=== PATIENT | female | born 1950 | race Caucasian/White ===

== ENCOUNTER 2019-02-15 10:42 | Emergency (ER) | payer MEDICARE ==
[2019-02-15] MEDS ORDERED: METOCLOPRAMIDE HCL INJ 10 MG/2 ML VIAL IM ONE (11:06)
[2019-02-15] MEDS ORDERED: ACETAMINOPHEN 500 MG TAB PO ONE (11:06)
[2019-02-15] MEDS ORDERED: IBUPROFEN 200 MG TAB PO ONE (11:06)
[2019-02-15] MEDS ORDERED: cloNIDine HCL 0.1 MG TAB PO ONE (11:06)
--- NOTE | 2019-02-15 11:15 | ED.PDOC ---
History of Present Illness - General Chief Complaint: Cardiovascular Problem Stated Complaint: Elevated BP, headache Time Seen by Provider: 02/15/19 11:05 - History of Present Illness Initial Comments: Pt is a 69 year old with pmh of htn who presents to the ED c/o a headache and elevated BP. Says she woke up this AM with a headache and found her BP to be over 200. She took her amlodipine but continued to be symptomatic and so took another dose. She decided to come to the ED since her BP has continued to be elevated. Her headache is left sided and radiates to her jaw. She does note a h/o headaches, and had a similar headache a couple weeks ago. Denies cp, sob, blurry vision, weakness. Allergies/Adverse Reactions: Allergies NO KNOWN ALLERGY Allergy (Verified 02/15/19 10:57) Home Medications: Ambulatory Orders Clonidine HCl [Clonidine Hydrochloride] 0.1 mg PO Q6HR PRN #20 tab 02/15/19 Fluticasone Prop 0.05% Nasal [Flonase Nasal [place]] 1 spray BNAS DAILY PRN Hydrochlorothiazide 25 mg PO BID 02/15/19 Montelukast [Singulair] 10 mg PO DAILY 02/15/19 amLODIPine BESYLATE [Norvasc] 5 mg PO DAILY 02/15/19 Review of Systems - Review of Systems Constitutional: States: no symptoms reported EENTM: States: no symptoms reported Respiratory: States: no symptoms reported Cardiology: States: no symptoms reported Gastrointestinal/Abdominal: States: no symptoms reported Genitourinary: States: no symptoms reported Musculoskeletal: States: no symptoms reported Skin: States: no symptoms reported Neurological: States: headache. Denies: numbness Endocrine: States: no symptoms reported Hematologic/Lymphatic: States: no symptoms reported All other Systems: Reviewed and Negative Past Medical History (General) - Patient Medical History Hx Stroke: No Hx Congestive Heart Failure: No Hx Hypertension: Yes Hx Diabetes: No Hx MRSA: No - Vaccination History Hx Influenza Vaccination: No Hx Pneumococcal Vaccination: No - Social History Hx Tobacco Use: No Hx Alcohol Use: No Family Medical History - Family History Mother Family History: No Known Living Status: Physical Exam - Physical Exam General Appearance: Alert, Comfortable Ears, Nose, Throat: hearing grossly normal, normal ENT inspection Neck: non-tender, full range of motion, other - no carotid bruit Respiratory: chest non-tender, lungs clear, normal breath sounds Cardiovascular/Chest: normal peripheral pulses, regular rate, rhythm, no edema Gastrointestinal/Abdominal: non tender, soft Extremity: normal inspection 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 Does report h/o multiple similar headaches. normal neuro exam. Plan to treat for hypertensive urgency, reassess. 02/15/19 11:49 Bp improved to 180 systolic, patient's symptoms have resolved and she is requesting to be discharged. Departure - Departure Clinical Impression: Hypertensive urgency Headache Qualifiers: Headache type: unspecified Headache chronicity pattern: acute headache Intractability: not intractable Qualified Code(s): R51 - Headache Disposition: Discharge to Home or Self Care Departure Forms: ED Discharge - Pt. Copy, Patient Portal Self Enrollment Instructions: High Blood Pressure in Adults Referrals: [facility] [Primary Care Provider] - 1-2 Weeks Prescriptions: Clonidine HCl [Clonidine Hydrochloride] 0.1 mg PO Q6HR PRN #20 tab PRN Reason: Hypertension Home Medications: Ambulatory Orders Clonidine HCl [Clonidine Hydrochloride] 0.1 mg PO Q6HR PRN #20 tab 02/15/19 Fluticasone Prop 0.05% Nasal [Flonase Nasal [place]] 1 spray BNAS DAILY PRN 02/15/19 Hydrochlorothiazide 25 mg PO BID 02/15/19 Montelukast [Singulair] 10 mg PO DAILY 02/15/19 amLODIPine BESYLATE [Norvasc] 5 mg PO DAILY 02/15/19
[2019-02-15 12:12] VITALS: BP 186/99; TEMP 97; O2SAT 97
== END 2019-02-15 11:55 | disposition home or self-care (01) ==
LOC: ER 10:42
DX: I16.0 Hypertensive urgency (principal); R51 Headache; Z79.899 Other long term (current) drug therapy
CPT/HCPCS: 93005; J2765

== ENCOUNTER 2019-02-21 11:22 | Emergency (ER) | payer MEDICARE ==
[2019-02-21] MEDS ORDERED: SODIUM CHLORIDE 0.9% 1000ML 1,000 ML IVS PRN (11:58)
[2019-02-21] MEDS ORDERED: hydrALAZINE HCl 20 MG/ML VIAL IV ONE (11:59)
--- NOTE | 2019-02-21 12:04 | ED.PDOC ---
History of Present Illness - General Chief Complaint: Blood Pressure Problem Stated Complaint: elevated BP Time Seen by Provider: 02/21/19 11:37 - History of Present Illness Initial Comments: this is a 69-year-old white female who presents today with complaints of high blood pressure. She was sent from the [facility] with elevated pressures. She was given clonidine 0.1 mg while she was in the office and then upon waiting for her blood pressure 10. She felt a little weird". She denies having any headache chest pain shortness of breath or disorientation. She states that she is on amlodipine 5 mg daily and hydrochlorothiazide 25 mg 1 by mouth twice a day. She states that she was taken off of atenolol approximately one year ago because it was ineffective. Prior to that she was on lisinopril but that was discontinued secondary to side effect of cough. She does admit to having a stress test years ago. She is a nonsmoker and has no history of coronary artery disease. Her previous PCP was Dr. 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 He has sent in a prescription for losartan to be started. There was no order given to increase amlodipine. Allergies/Adverse Reactions: Allergies Penicillins Allergy (Verified 02/21/19 11:41) Sulfa Antibiotics Allergy (Verified 02/21/19 11:41) Home Medications: Ambulatory Orders Clonidine HCl [Clonidine Hydrochloride] 0.1 mg PO Q6HR PRN #20 tab 02/15/19 Fluticasone Prop 0.05% Nasal [Flonase Nasal [place]] 1 spray BNAS DAILY PRN 02/15/19 Hydrochlorothiazide 25 mg PO BID 02/15/19 Montelukast [Singulair] 10 mg PO DAILY 02/15/19 amLODIPine BESYLATE [Norvasc] 5 mg PO DAILY 02/15/19 Ciprofloxacin [Cipro] 250 mg PO Q12H #14 tablet 02/21/19 hydrALAZINE HCl [(None)] 25 mg PO BID #60 tab 02/21/19 Review of Systems - Review of Systems Constitutional: States: no symptoms reported, other EENTM: States: no symptoms reported Respiratory: States: no symptoms reported Cardiology: States: no symptoms reported. Denies: chest pain, edema, palpitations, syncope Gastrointestinal/Abdominal: States: no symptoms reported Genitourinary: States: no symptoms reported Musculoskeletal: States: no symptoms reported Skin: States: no symptoms reported Neurological: States: anxiety. Denies: headache, numbness, paresthesia, tingling, tremors, weakness Endocrine: States: no symptoms reported Hematologic/Lymphatic: States: no symptoms reported Past Medical History (General) - Patient Medical History Hx Stroke: No Hx Congestive Heart Failure: No Hx Hypertension: Yes Hx Diabetes: No Hx MRSA: No Surgical History: cholecystectomy - Vaccination History Hx Influenza Vaccination: No Hx Pneumococcal Vaccination: No - Social History Hx Tobacco Use: No Hx Alcohol Use: No Family Medical History - Family History Mother Family History: No Known Living Status: Physical Exam - Physical Exam General Appearance: Alert, Anxious, No apparent distress Eyes, Ears, Nose, Throat Exam: PERRL/EOMI, normal ENT inspection Neck: non-tender, supple Respiratory: chest non-tender, lungs clear, normal breath sounds, no respiratory distress, no accessory muscle use Cardiovascular/Chest: normal peripheral pulses, regular rate, rhythm, no edema, no gallop, no JVD, no murmur Peripheral Pulses: radial,right: 2+, radial,left: 2+ Gastrointestinal/Abdominal: normal bowel sounds, non tender, soft, no organomega ly, no pulsatile mass, other - no bruits Extremity: normal range of motion, non-tender, normal inspection, no pedal edema 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 We will start with hydralazine and see what her results are. She also had a complaint of gastric reflux and IV Protonix was ordered. Working diagnosis will be hypertensive urgency. We'll monitor to see whether patient needs further evaluation in 23 hour obs. 02/21/19 13:02 Pt bp is well controlled after only one dose of hydralazine. She is feeling a lot better. Her is at bedside. No complaints. Will evaluate lab results and will start preparing for potential discharge with clinic follow up. 02/21/19 13:08 Borderline heart size on cxr otherwise normal cxr. - Results/Orders Results/Orders: 02/21/19 11:58 Sodium Chloride 0.9% 1000ML [Ns 1000 ml] 1,000 ml IVS .KVO 02/21/19 12:00 ecg [EKG] STAT 02/21/19 12:40 Urine Culture Stat Laboratory Results - last 24 hr 02/21/19 02/21/19 02/21/19 12:09 12:09 12:09 WBC 6.6 RBC 4.73 Hgb 13.3 Hct 40.2 MCV 84.9 MCH 28.2 MCHC 33.2 RDW 14.4 Plt Count 271 MPV 8.6 Absolute Neuts (auto) 3.90 Absolute Lymphs (auto) 1.90 Absolute Monos (auto) 0.50 Absolute Eos (auto) 0.20 Absolute Basos (auto) 0.10 Neutrophils % 60.0 Lymphocytes % 28.5 Monocytes % 7.2 Eosinophils % 2.9 Basophils % 1.4 Sodium 140 Potassium 3.9 Chloride 104 Carbon Dioxide 26 Anion Gap 13.9 BUN 18 Creatinine 0.75 BUN/Creatinine Ratio 24.0 H Random Glucose 99 Serum Osmolality 281.3 Calcium 8.8 Total Bilirubin 0.6 AST 18 ALT 19 Alkaline Phosphatase 79 Creatine Kinase Troponin I < 0.02 Serum Total Protein 7.7 Albumin 3.8 Globulin 3.9 H Albumin/Globulin Ratio 1.0 L Urine Color Urine Appearance Urine pH Ur Specific [place] Urine Protein Urine Glucose (UA) Urine Ketones Urine Blood Urine Nitrite Urine Bilirubin Urine Urobilinogen Ur Leukocyte Esterase Urine RBC Urine WBC Ur Epithelial Cells Amorphous Sediment Urine Bacteria Urine Mucus 02/21/19 02/21/19 12:10 12:40 WBC RBC Hgb Hct MCV MCH MCHC RDW Plt Count MPV Absolute Neuts (auto) Absolute Lymphs (auto) Absolute Monos (auto) Absolute Eos (auto) Absolute Basos (auto) Neutrophils % Lymphocytes % Monocytes % Eosinophils % Basophils % Sodium Potassium Chloride Carbon Dioxide Anion Gap BUN Creatinine BUN/Creatinine Ratio Random Glucose Serum Osmolality Calcium Total Bilirubin AST ALT Alkaline Phosphatase Creatine Kinase 60 Troponin I Serum Total Protein Albumin Globulin Albumin/Globulin Ratio Urine Color Yellow Urine Appearance Clear Urine pH 6.5 Ur Specific [place] 1.015 Urine Protein Negative Urine Glucose (UA) Negative Urine Ketones Negative Urine Blood Trace-intact H Urine Nitrite Negative Urine Bilirubin Negative Urine Urobilinogen 0.2 Ur Leukocyte Esterase Small H Urine RBC 1-3 Urine WBC 3-5 H Ur Epithelial Cells 1-3 Amorphous Sediment 1+ Urine Bacteria Rare Urine Mucus Large IMPRESSION: Borderline heart size. No failure. No airspace edema or infiltrate. No pleural effusion or pneumothorax. Electronically signed by: Aba Marc MD 02/21/2019 12:28 PM CDT - EKG/XRAY/CT EKG: Sinus, LVH, no ST T wave changes Comments: rate of 62, normal axis Departure - Departure Clinical Impression: Chronic hypertension, Hypertensive urgency UTI (urinary tract infection) Qualifiers: Urinary tract infection type: acute cystitis Hematuria presence: with hematuria Qualified Code(s): N30.01 - Acute cystitis with hematuria Time of Disposition: 13:32 Disposition: Discharge to Home or Self Care Condition: Good Departure Forms: ED Discharge - Pt. Copy, Patient Portal Self Enrollment Instructions: DI for High Blood Pressure, Acute Cystitis (DC) Referrals: RAYO LILLY IV, [employer] [Primary Care Provider] - 1-2 Weeks Prescriptions: Ciprofloxacin [Cipro] 250 mg PO Q12H #14 tablet hydrALAZINE HCl [(None)] 25 mg PO BID #60 tab Home Medications: Ambulatory Orders Clonidine HCl [Clonidine Hydrochloride] 0.1 mg PO Q6HR PRN #20 tab 02/15/19 Fluticasone Prop 0.05% Nasal [Flonase Nasal [place]] 1 spray BNAS DAILY PRN 02/15/19 Hydrochlorothiazide 25 mg PO BID 02/15/19 Montelukast [Singulair] 10 mg PO DAILY 02/15/19 amLODIPine BESYLATE [Norvasc] 5 mg PO DAILY 02/15/19 Ciprofloxacin [Cipro] 250 mg PO Q12H #14 tablet 02/21/19 hydrALAZINE HCl [(None)] 25 mg PO BID #60 tab 02/21/19
[2019-02-21] MEDS ORDERED: PANTOPRAZOLE SODIUM IV 40 MG VIAL IV ONE (12:13)
--- NOTE | 2019-02-21 12:29 | RAD ---
Portable chest INDICATION: Hypertension IMPRESSION: Borderline heart size. No failure. No airspace edema or infiltrate. No pleural effusion or pneumothorax. Electronically signed by: Aba Marc MD 02/21/2019 12:28 PM CDT
[2019-02-21 13:50] VITALS: BP 179/90; TEMP 96.4; O2SAT 99
== END 2019-02-21 13:49 | disposition home or self-care (01) ==
LOC: ER 11:22
DX: I16.0 Hypertensive urgency (principal); N30.01 Acute cystitis with hematuria; I51.7 Cardiomegaly; K21.9 Gastro-esophageal reflux disease without esophagitis; Z79.899 Other long term (current) drug therapy; Z88.0 Allergy status to penicillin; Z88.2 Allergy status to sulfonamides
CPT/HCPCS: 36415; 71045; 80053; 81001; 82550; 84484; 85025; 87086; 93005; J0360; J7030